=== PATIENT | male | born 1970 | race Caucasian/White ===

== ENCOUNTER 2016-10-04 15:25 | Observation (INO) | payer OTHER ==
--- NOTE | ~2016-10-04 | MR17 ---
[facility] A Service of [facility] RADIOLOGY TEXT RESULTS PATIENT: IVAN ALEJANDRA LOCATION: [facility] 567-01 : [birth year] UNIT #: [id number] AGE: [address]: Jovan Magdaleno MD SEX: M ORDER DR: [id number] [facility] [address] [place], [place] [address] [id number] I MR#: [id number] Acc #: [id number] NAME: IVAN ALEJANDRA : 1970 SEX: M STUDY DATE/TIME: 10/05/2016 15:25 UNIT: [facility] ROOM: [facility] STUDY DESCRIPTION: MR Brain WWo Contrast Attending Physician: Jovan Magdaleno M.D. Ordering Physician: Qian Rose M.D. Primary Care Physician: Dinesh Ward M.D. MRI CENTER REPORT This report is preliminary unless electronic signature is present. EXAM MRI of the brain with and without contrast. HISTORY Left-sided facial numbness for 2 days with left-sided arm numbness for a month. COMPARISON CT head, 10/04/2016. TECHNIQUE Sagittal T1-weighted images and axial T1, T2, FLAIR, and diffusion images were obtained. Then, the patient was given 20 mL of MultiHance, and axial and coronal T1-weighted images were obtained. FINDINGS The pituitary gland and foramen magnum region are normal in appearance. There is no abnormal diffusion. The FLAIR series appears normal. There is no abnormal white matter signal. The ventricles and subarachnoid spaces are normal. There are no masses or extraaxial fluid collections. There is no enhancement or hemorrhage. IMPRESSION Normal MRI of the brain with and without contrast. STAT * RESULT Dictated by... Al Henriquez M.D. [facility] A Service of [facility] RADIOLOGY TEXT RESULTS PATIENT: IVAN ALEJANDRA LOCATION: [facility] 567-01 : 72 UNIT #: [id number] AGE: [address]: Jovan Magdaleno MD SEX: M ORDER DR: THIS IS AN ELECTRONICALLY VERIFIED REPORT Al Henriquez M.D. at 10/05/2016 8:21 PM Ryder TD: 10/05/2016 17:24 JOB #: [id number] MRI CENTER REPORT Page 1 of 1 COPY
--- NOTE | ~2016-10-04 | HM ---
Unit #: [id number] #: [id number] Patient: IVAN ALEJANDRA [id number] [address] [address] [id number] I MR#: [id number] NAME: IVAN ALEJANDRA. : 1970 SEX: M STUDY DATE/TIME: 10/05/2016 UNIT: [facility] ROOM: 567 STUDY DESCRIPTION: Attending Physician: Jovan Magdaleno M.D. Primary Care Physician: Dinesh Ward M.D. CARDIOLOGY REPORT EXAM Holter monitor. DATE APPLIED 10/05/2016 DATE SCANNED 10/09/[address] Rose READ BY Dr. Fadi Le INDICATION CVA, rule out atrial fibrillation. SUMMARY The patient was monitored for 24 hours. A total of 89,738 beats were analyzed. The rhythm was sinus rhythm. Average heart rate was 71 beats per minute, minimum heart rate 44 beats per minute at 3 a.m., and maximum heart rate 117 beats per minute at approximately 1:30 p.m. A review of the heart rate histogram showed a normal distribution of heart rates. Supraventricular ectopy: 5 isolated beats with no runs. Ventricular ectopy: 6 isolated beats with no runs. No atrial fibrillation was noted. No symptoms were noted. No patient activated events were noted. IMPRESSION Normal Holter with rare, benign, and clinically insignificant ventricular and atrial ectopy. Dictated by... Alesia Estrella/leonardo TD: 10/10/2016 21:52 JOB #: [id number] Unit #: [id number] #: [id number] Patient: IVAN ALEJANDRA CARDIOLOGY REPORT Page 1 of 1 X Fadi Le MD HOLTER MONITOR REPORT
--- NOTE | ~2016-10-04 | EKG ---
PATIENT: IVAN ALEJANDRA UNIT #: [id number] Ventricular Rate: 77 BPM Atrial Rate: 77 BPM P-R Interval: 152 ms QRS Duration: 94 ms Q-T Interval: 384 ms QTC Calculation(Bezet): 434 ms P Henderson: 54 degrees Calculated R Henderson: 16 degrees Calculated T Henderson: 51 degrees Diagnosis Line: Normal sinus rhythm Diagnosis Line: Normal ECG Diagnosis Line: No previous ECGs available Diagnosis Line: Confirmed by SUMI CARRENO MD ([id number]) on 10/07/2016 Diagnosis Line: 4:01:47 PM INTERPRETING MD: WAI DEMARCO
--- NOTE | ~2016-10-04 | CT71 ---
[facility] A Service of [facility] RADIOLOGY TEXT RESULTS PATIENT: WANDA ALEJANDRA LOCATION: [facility] [id number] : 72 UNIT #: [id number] AGE: [address]: VANE FLORES MD SEX: M ORDER DR: [id number] [place] [id number] E MR#: [id number] Acc #: [id number] NAME: WANDA ALEJANDRA. : 1970 SEX: M STUDY DATE/TIME: 10/04/2016 14:48 UNIT: SED ROOM: STUDY DESCRIPTION: CT Head Wo Contrast Attending Physician: Brayden Christopher M.D. Ordering Physician: Brayden Christopher M.D. Primary Care Physician: Dinesh Ward M.D. MEDICAL IMAGING REPORT This report is preliminary unless electronic signature is present. EXAM Noncontrast head CT. HISTORY Left arm numbness on and off and on x1 month, facial numbness since last night. TECHNIQUE Axial noncontrast images were obtained from the skull base to the vertex. This CT exam was performed with one or more of the following radiation dose reduction techniques: automatic exposure control, adjustment of mA and/or kV according to patient size, and iterative reconstruction. FINDINGS Ventricular size and configuration are normal. There is no evidence of acute infarct or hemorrhage. There are no extraaxial fluid collections. No mass lesion or mass effect is seen. There are no skull fractures. IMPRESSION Normal noncontrast head CT. Dictated by... Omid Ribera M.D. THIS IS AN ELECTRONICALLY VERIFIED REPORT Omid Ribera M.D. at 10/04/2016 5:29 PM Cinda TD: 10/04/2016 16:00 JOB #: [id number] [facility] A Service of [facility] RADIOLOGY TEXT RESULTS PATIENT: WANDA ALEJANDRA LOCATION: [facility] : 71 UNIT #: [id number] AGE: [address]: VANE FLORES MD SEX: M ORDER DR: MEDICAL IMAGING REPORT Page 1 of 1
--- NOTE | ~2016-10-04 | CO ---
Unit #: [id number] #: [id number] Patient: IVAN ALEJANDRA [id number] [facility] [address] [place], [place] [address] [id number] I MR#: [id number] NAME: IVAN ALEJANDRA. ROOM: 567 Age: 46 Sex: M Admission Date: 10/04/2016 : 1970 Attending Physician: Jovan Magdaleno M.D. Primary Care Physician: Dinesh Ward M.D. Consultation Date: 10/05/2016 CONSULTATION REPORT PRIMARY CARE PHYSICIAN Dinesh Ward M.D. REASON FOR CONSULT Left-sided numbness. PATIENT IDENTIFICATION This is a 46-year-old, right-handed, male, evaluated in room 567 at [facility]. SOURCE OF INFORMATION Obtained from the patient as well as medical record. HISTORY OF PRESENT ILLNESS This is a 46-year-old, right-handed, male with a past medical history of GERD, hyperlipidemia and chronic intermittent left arm numbness, who presents to [facility] with left arm and left facial numbness and the patient reports that he has experienced intermittent left lateral neck and left arm numbness, and pain intermittently in the past and reports that he has actually had a thorough cardiac workup including a nuclear stress test in 2014 and a cardiac catheterization, which he says was unremarkable. I do not have those reports. He states that he tries not to get worked up whenever he developed left arm numbness because he has had a negative cardiac workup in the past. However, on the day prior to admission, he was getting ready to take a nap and he developed left arm and left neck numbness and discomfort. He noticed that it was traveling through the left side of his face. He states he noticed this after experienced some palpitations. His symptoms continued for about a half a day and then resolved. He made an appointment with his primary care physician who recommended that he go to [facility] for an MRI scan; however, it is reported that [facility] no longer has an MRI scan. He was transferred here for further workup. His CT scan was negative without contrast. He was admitted here for further workup and evaluation. Neurology was asked to see. He denies any exacerbating or alleviating factors and the symptoms have fully resolved. He denies any associated leg involvement, any weakness, slurred speech, trouble talking, vision changes, double vision, blurred vision, or loss of vision, headache, fever, chills, recent illness or injury, loss of consciousness or loss of awareness, shortness of air, chest pain, nausea vomiting or abdominal pain or falls. He states at the time that it occurred, he began to talk to his , and she apparently told him that she did not notice any slurred speech. He states that he looked in the mirror and did not notice any facial drooping. He is at his baseline and is waiting for his MRI. Unit #: [id number] #: [id number] Patient: IVAN ALEJANDRA PAST MEDICAL HISTORY 1. History of left arm and left neck numbness in the past intermittently with reportedly normal cardiac workup with normal cardiac catheterization and nuclear stress test in 2014. Details unavailable. 2. GERD. 3. Esophagitis. 4. Hyperlipidemia. ALLERGIES No known drug allergies. HOME MEDICATIONS Home medications are being reconciled. He states he does not take aspirin or any antiplatelet or anticoagulating medications on a routine basis. FAMILY HISTORY Positive for "mini stroke" according to the patient in his mother about 3 weeks ago. She is 69 years of age. SOCIAL HISTORY The patient is . He lives with his and 3 children. He stopped smoking 5 years ago. He denies alcohol use or abuse or illicit drug use. REVIEW OF SYSTEMS 14-point review of systems was done. Pertinent positives are as discussed above, otherwise negative. PHYSICAL EXAMINATION VITAL SIGNS: Temperature 98.5, pulse 71, respirations 18, blood pressure 126/81, blood pressure in the ER on arrival was 145/96, oxygen saturation 98%. Height 5 feet 11-1/2 inches, weight 212 pounds, BMI 29. NEUROLOGIC: The patient is awake, alert, and oriented to person, place, and time as well as events. He has no right or left confusion. No finger agnosia. No aphasia, dysarthria, or apraxia. Cranial nerve exam demonstrates full mckeon of vision. Eyes are conjugate without ptosis or nystagmus. Extraocular movements are intact. Sensation of face and scalp is intact. Strength of muscles of facial expression is intact. Hearing is intact to finger rub and conversation. Tongue is midline. Uvula is midline. Palate elevation is normal. Head turning and shoulder shrug are unremarkable. Neck is supple. Motor exam demonstrates normal bulk and tone. Strength is equal 5/5 in all extremities. Sensory exam intact to soft touch and pinprick sensation. Gait is normal. Romberg deferred. Reflexes, 1/4. Toes are mute. Coordination unremarkable. DIAGNOSTIC STUDIES IMAGING STUDIES: CT of the head without contrast on 10/04/[address] LABORATORY RESULTS: CBC is unremarkable other than a hemoglobin of 16.2. BMP unremarkable other than a sodium of 131, PT 13.1, INR 1.2, PTT 31.9. Troponin less than 0.03. Repeat BMP unremarkable with a sodium of 137. Cholesterol 156, triglycerides 185, LDL 94, HDL 25, CK 137. Unit #: [id number] #: [id number] Patient: IVAN ALEJANDRA IMPRESSION 1. Left arm and left facial numbness/paresthesia resolved, rule out ischemia. 2. Gastroesophageal reflux disease. 3. Hyperlipidemia with an LDL of 94. PLAN The patient has been started on aspirin. We will check an MRI of the brain, MRA of the head and neck, and also 2D echocardiogram, which has been ordered. Bilateral lower extremity SCDs and statin. Further recommendations to be made pending workup and further clinical course. A Holter monitor has already been ordered as well. We will ask the nurse to call with MRI results and further recommendations made pending those exams. Stroke education was provided to the patient. Again, request MRI to further evaluate and also check intracranial and extracranial vessels and Holter monitor to be placed. Case was discussed with Dr. Lawson and he agrees to the above. We will follow along with you. Dictated by... Joann Quintero A.P.R.N. for Alesia Grove/dashawn TD: 10/06/2016 05:11 JOB #: [id number] CONSULTATION REPORT Page 1 of 1 X Joann Quintero APRN X CONSULTATION REPORT
--- NOTE | ~2016-10-04 | MR134 ---
[facility] A Service of [facility] RADIOLOGY TEXT RESULTS PATIENT: IVAN ALEJANDRA LOCATION: [facility] 567-01 : 71 UNIT #: [id number] AGE: [address]: Jovan Magdaleno MD SEX: M ORDER DR: [id number] [facility] [address] [place], [place] [address] [id number] I MR#: [id number] Acc #: [id number] NAME: IVAN ALEJANDRA. : 1970 SEX: M STUDY DATE/TIME: 10/05/2016 15:54 UNIT: [facility] ROOM: [facility] STUDY DESCRIPTION: MR MRA Neck Wo Contrast Attending Physician: Jovan Magdaleno M.D. Ordering Physician: Qian Rose M.D. Primary Care Physician: Dinesh Ward M.D. MRI CENTER REPORT This report is preliminary unless electronic signature is present. EXAM MRA neck. DATE OF EXAM 10/05/2016 HISTORY Left-sided weakness. Left facial numbness since 10/03/2016 p.m., left arm numbness off/on 1 month. 10/03/2016 felt left facial and left arm numbness lasted most of that day, now resolved. No other symptoms. No history of cancer. TECHNIQUE 2-dimensional and 3-dimensional rqay-fv-ifbkcr imaging performed through the cervical, carotid and vertebral arteries. A portion of the aortic arch included on the 2-D lzbc-ic-tkybwx images. Study not tailored for assessment of the paraspinal soft tissues. No gross acute abnormality is suggested. Visualized aortic arch appears of normal caliber. Great vessel origins are patent. The left vertebral artery arises from the aortic arch. This is a normal variant. The vertebral arteries are codominant and widely patent throughout their visualized course. The bilateral subclavian arteries appear patent in their visualized extent. The bilateral common carotid arteries, cervical, internal and external carotid arteries are patent without evidence of flow-limiting stenosis. IMPRESSION 1. There is no indication of hemodynamically significant luminal narrowing in the bilateral cervical internal carotid arteries based on NASCET criteria. 2. Codominant widely patent vertebral arteries. Normal anatomic variant of the left vertebral artery arising from aortic arch. [facility] A Service of [facility] RADIOLOGY TEXT RESULTS PATIENT: IVAN ALEJANDRA LOCATION: [facility] 567-01 : [birth year] UNIT #: [id number] AGE: [address]: Jovan Magdaleno MD SEX: M ORDER DR: 3. See remainder of incidental findings in body of report above. Dictated by... Aki Guzmán M.D. THIS IS AN ELECTRONICALLY VERIFIED REPORT Aki Guzmán M.D. at 10/08/2016 7:35 AM YING/asim TD: 10/05/2016 23:23 JOB #: [id number] MRI CENTER REPORT Page 1 of 1 COPY
--- NOTE | ~2016-10-04 | DS ---
Unit #: [id number] #: [id number] Patient: IVAN ALEJANDRA [id number] [address] [address] [id number] I MR#: [id number] NAME: IVAN ALEJANDRA ROOM: 567 Age: 46 Sex: M Admission Date: 10/04/2016 : 1970 Discharge Date: 10/06/2016 Attending Physician: Jovan Magdaleno M.D. Primary Care Physician: Dinesh Ward M.D. DISCHARGE SUMMARY FINAL DIAGNOSES 1. TIA. Stroke ruled out. 2. Hyperlipidemia. SECONDARY DIAGNOSES 1. Gastroesophageal reflux disease. 2. Esophagitis. 3. Hyperlipidemia. CONSULTANTS Dr. Lawson, neurology. DIAGNOSTIC DATA IMAGING: MRI of the brain, MRA head and neck. HOSPITAL COURSE The patient is a 46-year-old male who basically developed intermittent left lateral neck and left arm numbness over a period. He was seen and evaluated in the emergency room and admitted for TIA/stroke workup. Workup was negative. MRI was negative. MRA was negative. Medications were adjusted and he was discharged in stable condition. His symptoms have resolved prior to discharge. DISCHARGE MEDICATIONS 1. Lipitor 40 mg p.o. daily. 2. Gemfibrozil 600 mg p.o. at nighttime. 3. Aspirin 325 mg p.o. daily. 4. Protonix 40 mg p.o. daily. FOLLOWUP He will follow up with primary care physician in the next three to five days. DISCHARGE CONDITION Stable. He will be discharged after cleared by neurology. Time spent coordinating discharge was 21 minutes. Dictated by... Andrew Herring M.D. Unit #: [id number] #: [id number] Patient: IVAN ALEJANDRA OO/gz TD: 10/06/2016 06:41 JOB #: [id number] CC: Leodan Bal M.D. DISCHARGE SUMMARY Page 1 of 1 X Andrew Herring MD DISCHARGE SUMMARY
--- NOTE | ~2016-10-04 | HP ---
Unit #: [id number] #: [id number] Patient: WANDA ALEJANDRA [id number] [address] [place], [place] [address] [id number] MR#: [id number] NAME: WANDA ALEJANDRA. ROOM: 567 Age: 46 Sex: M Admission Date: 10/04/2016 : 1970 Attending Physician: Laverne Concepcion M.D. Primary Care Physician: Dinesh Ward M.D. HISTORY AND PHYSICAL CHIEF COMPLAINT Left-sided numbness. HISTORY OF PRESENT ILLNESS This pleasant 46-year-old male with GERD, hyperlipidemia, was transferred from [facility] emergency department for left-sided numbness. The patient states that he has been experiencing intermittent left lateral neck, left arm numbness and discomfort for some time. He actually underwent a cardiac catheterization after a nuclear stress test in 2014 and results were reportedly normal. Last evening, he developed left neck, left arm discomfort with numbness in the left arm but then noticed numbness over the entire left face with some palpitations. His symptoms continued today and he saw his primary care physician who recommended that he be seen at [facility] ER for an MRI scan. Apparently, [facility] no longer has an MRI scan. Head CT was negative. The patient was sent to this facility for further workup and treatment. At this time, symptoms are improved but the patient still is experiencing some minor numbness left arm and left lower face. His neurologic examination is completely normal at present. PAST MEDICAL HISTORY 1. Reportedly normal cardiac catheterization in 2014 following a nuclear stress test. 2. GERD with esophagitis. 3. Hyperlipidemia. ALLERGIES None. HOME MEDICATIONS 1. Proton pump inhibitor. 2. Cholesterol medicine. SOCIAL HISTORY The patient lives with his and three children. He stopped smoking five years ago. Does not drink alcohol or use illicit drugs. FAMILY HISTORY Mother had a TIA three weeks ago. REVIEW OF SYSTEMS Notable for left facial numbness and left arm numbness, previous cardiac catheterization, esophagitis, GERD, hyperlipidemia. All other systems Unit #: [id number] #: [id number] Patient: WANDA ALEJANDRA were reviewed and are negative. PHYSICAL EXAMINATION VITAL SIGNS: Temperature 98, pulse 93, respirations 18, blood pressure 145/96, O2 saturation 96% on room air. GENERAL: Pleasant, 46-year-old male currently in no acute distress. HEENT: Eyes PERRLA. Extraocular muscles are intact. Pharynx benign but patient does have a forceful gag reflex. The palate elevates midline from what I can see. NECK: Supple without adenopathy or thyromegaly or carotid bruits. CHEST: Clear. HEART: Normal S1, S2 without S3, S4 or murmur. ABDOMEN: Bowel sounds are present. No hepatosplenomegaly, tenderness or masses. EXTREMITIES: Without clubbing, cyanosis, or edema. NEUROLOGIC: Awake, alert, oriented times 3. His cranial nerves are intact. He has +5/5 strength throughout. Normal rapid alternating movements. Normal lmszui-gl-ijiq. Negative pronator drift. His sensation seems to be intact bilaterally. He is able to stand and ambulate without difficulty. DIAGNOSTIC STUDIES LABORATORY: Hematocrit 47.3, normal white count and platelet count. Normal coags. SMA-12 sodium 131, otherwise normal. IMAGING: Head CT is normal. CARDIOVASCULAR: EKG. I do not have a copy of an EKG if it was performed earlier. ASSESSMENT 1. Complains of left-sided facial and arm numbness since last evening with some palpitations. 2. Reportedly negative cardiac catheterization 2014. 3. History of gastroesophageal reflux disease with reported esophagitis. 4. Hyperlipidemia. PLAN 1. MRI of the brain, MRA of the head and neck, obtain lipid profile, echo, and Holter monitor. 2. Start aspirin. 3. Obtain EKG. 4. Neurology was already consulted by [facility] ER. 5. SCDs for DVT prophylaxis. 6. Neuro checks. Dictated by Qian Rose M.D. AML/cs TD: 10/04/2016 22:15 Unit #: [id number] #: [id number] Patient: WANDA ALEJANDRA JOB #: [id number] HISTORY AND PHYSICAL Page 1 of 1 X Qian Rose MD X HISTORY AND PHYSICAL
--- NOTE | ~2016-10-04 | MR122 ---
[facility] A Service of [facility] RADIOLOGY TEXT RESULTS PATIENT: IVAN ALEJANDRA LOCATION: [facility] 567-01 : [birth year] UNIT #: [id number] AGE: [address]: Jovan Magdaleno MD SEX: M ORDER DR: [id number] [facility] [address] [place], [place] [address] [id number] I MR#: [id number] Acc #: [id number] NAME: IVAN ALEJANDRA. : 1970 SEX: M STUDY DATE/TIME: 10/05/2016 15:46 UNIT: [facility] ROOM: [facility] STUDY DESCRIPTION: MR MRA Head Wo Contrast Attending Physician: Jovan Magdaleno M.D. Ordering Physician: Qian Rose M.D. Primary Care Physician: Dinesh Ward M.D. MRI CENTER REPORT This report is preliminary unless electronic signature is present. EXAM MRA head 10/05/2016 HISTORY Left-side numbness. Left facial numbness since 10/03/2016 P.M.. Left arm numbness off on 1 month. Patient states Saturday10/03/2016 felt left facial and left arm numbness, lasted most of that day now resolved. No other symptoms. FINDINGS Three-dimensional wymq-os-anyxmz imaging performed through the base of skull through [place] of [place]. No prior angiographic imaging of brain for comparison. Please see dedicated MRI brain for full assessment of brain parenchymal findings. No clearly acute parenchymal abnormality is seen on these images. The distal vertebral arteries are patent, codominant, and contribute to the basilar artery which is normal in caliber. Hypoplastic right P1 arterial segment with persistent origin of the right posterior cerebral artery. The basilar artery gives dominant supply to the left posterior cerebral artery and a left posterior communicating artery is not clearly identified. Remainder of posterior circulation unremarkable. The bilateral distal internal carotid arteries appear widely patent. Anterior and middle cerebral arteries are patent and there is an anterior communicating artery. No aneurysm. No indication of vascular malformation. IMPRESSION 1. There is no indication of a aneurysm or pathologic vascular cutoff. The distal internal carotid arteries appear widely patent bilaterally. The anterior and middle cerebral arteries appear widely patent bilaterally. There is an anterior communicating artery. 2. The distal vertebral arteries are patent. Basilar artery patent within normal limits of caliber. Hypoplastic right P1 arterial segment with persistent origin right posterior cerebral artery. [facility] A Service of [facility] & [facility] RADIOLOGY TEXT RESULTS PATIENT: IVAN ALEJANDRA LOCATION: [facility] 567-01 : [birth year] UNIT #: [id number] AGE: [address]: Jovan Magdaleno MD SEX: M ORDER DR: Basilar artery gives dominant supply to the left posterior cerebral artery. Posterior circulation otherwise unremarkable. A left posterior communicating artery is not clearly identified. Dictated by... Aki Guzmán M.D. THIS IS AN ELECTRONICALLY VERIFIED REPORT Aki Guzmán M.D. at 10/08/2016 7:35 AM YING/amparo TD: 10/05/2016 23:39 JOB #: [id number] MRI CENTER REPORT Page 1 of 1 COPY
[2016-10-04 14:48] LABS: BASOPHIL# 0.1 X10e3 (0-0.3); BASOPHIL% 1.4 % (0-2.5); EOSINOPHIL# 0.2 X10e3 (0-0.7); HEMATOCRIT 47.3 % (38.0-50.0); HEMOGLOBIN 16.2 gm/dL (13.0-16.0); LYMPHOCYTE# 2.1 X10e3 (1.0-3.5); LYMPHOCYTE% 36.3 % (17.0-45.0); MEAN CELL VOLUME 89.7 FL (83-96); MEAN CORPUSCULAR HEMOGLOBIN 30.8 PG (28-34); MEAN CORPUSCULAR HGB CONC 34.3 g/dL (30-36); MEAN PLATELET VOLUME 6.8 FL (6.5-11.5); MONOCYTE# 0.8 X10e3 (0-1.0); MONOCYTE% 13.9 % (3.0-12.0); NEUTROPHIL# 2.6 X10e3 (1.5-7.1); NEUTROPHIL% 45.4 % (40-75); PLATELET COUNT 269 X10e3 (140-420); RED BLOOD COUNT 5.28 X10e (3.90-5.60); RED CELL DISTRIBUTION WIDTH 12.8 % (11.0-15.5); WHITE BLOOD COUNT 5.6 X10e3 (4.0-10.5)
[2016-10-04 14:50] LABS: DIFF IND NO
[2016-10-04 14:57] LABS: INR 1.2; PROTHROMBIN TIME (PATIENT) 13.1 SECONDS (9.5-12.4)
[2016-10-04 15:04] LABS: PARTIAL THROMBOPLASTIN TIME 31.9 SECONDS (25.6-38.1)
[2016-10-04 15:06] LABS: ALBUMIN SERUM 4.7 g/dL (3.5-5.0); BILIRUBIN, DIRECT 0.1 mg/dL (0.0-0.2); BILIRUBIN,INDIRECT 0.8 mg/dL (0.0-0.9); BILIRUBIN,TOTAL 0.9 mg/dL (0.2-2.0); GLOM FILT RATE Estimated 90.5 mL/min (>60); POTASSIUM 3.7 mmol/L (3.5-5.1); PROTEIN TOTAL SERUM 7.1 g/dL (6.0-8.3)
[~2016-10-04 15:25] MED LIST: ANTACID; CHOLESTEROL MED
[2016-10-05] MEDS ORDERED: PROTONIX PO (01:48)
[2016-10-05] MEDS ORDERED: LOPID600 MG PO (01:49)
[2016-10-05 05:29] LABS: BASOPHIL# 0.1 X10e3 (0-0.3); BASOPHIL% 2.3 % (0-2.5); EOSINOPHIL# 0.2 X10e3 (0-0.7); EOSINOPHIL% 4.2 % (0.0-7.0); HEMATOCRIT 46.2 % (38.0-50.0); HEMOGLOBIN 15.4 gm/dL (13.0-16.0); LYMPHOCYTE# 2.4 X10e3 (1.0-3.5); LYMPHOCYTE% 43.8 % (17.0-45.0); MEAN CELL VOLUME 91.3 FL (83-96); MEAN CORPUSCULAR HEMOGLOBIN 30.4 PG (28-34); MEAN CORPUSCULAR HGB CONC 33.3 g/dL (30-36); MONOCYTE# 0.6 X10e3 (0-1.0); MONOCYTE% 11.5 % (3.0-12.0); NEUTROPHIL# 2.1 X10e3 (1.5-7.1); NEUTROPHIL% 38.2 % (40-75); PLATELET COUNT 248 X10e3 (140-420); RED BLOOD COUNT 5.07 X10e (3.90-5.60); RED CELL DISTRIBUTION WIDTH 13.5 % (11.0-15.5); WHITE BLOOD COUNT 5.4 X10e3 (4.0-10.5)
[2016-10-05 05:38] LABS: DIFF IND NO
[2016-10-05 06:59] LABS: BUN/CREATININE RATIO 12.72; CALCIUM SERUM 9.1 mg/dL (8.4-10.2); CREATININE SERUM 1.1 mg/dL (0.6-1.4); GLOM FILT RATE Estimated 80.7 mL/min (>60)
[2016-10-05 07:22] LABS: %MB 1.1 % (0.0-4.0); MB 1.5 ng/ml
[2016-10-06 07:43] LABS: BUN/CREATININE RATIO 13.63; CALCIUM SERUM 9.4 mg/dL (8.4-10.2); CREATININE SERUM 1.1 mg/dL (0.6-1.4); GLOM FILT RATE Estimated 80.7 mL/min (>60); POTASSIUM 4.7 mmol/L (3.5-5.1)
[2016-10-06] MEDS ORDERED: ACETAMINOPHEN PO (08:40)
[2016-10-06] MEDS ORDERED: LIPITOR40 MG PO (08:41)
== END 2016-10-06 14:37 | disposition home or self-care (01) | DRG 69 ==
LOC: SED 15:25 → SEDOF 15:57 → C5C 21:15
PROVIDERS: Emergency Medicine; Internal Medicine
DX: G45.9 Transient cerebral ischemic attack, unspecified (principal); E78.5 Hyperlipidemia, unspecified; K21.0 Gastro-esophageal reflux disease with esophagitis; Z87.891 Personal history of nicotine dependence; Z82.3 Family history of stroke
CPT/HCPCS: 36415; 70450; 70544; 70547; 70553; 80048; 80061; 80076; 82550; 82553; 82947; 84484; 85025; 85610; 85730; 93005; 93225; 93226; 93306; 99285; A9577; G0378